=== PATIENT | male | born 1965 | race Caucasian/White ===

== ENCOUNTER 2021-06-12 12:57 | Outpatient (CLI) | payer BC, MEDICARE | END 2021-06-12 12:58 | disposition home or self-care (01) | LOC: CSHMRI 12:57 | PROVIDERS: ATTEND Specialist | DX: G35 Multiple sclerosis (principal); M47.812 Spondylosis without myelopathy or radiculopathy, cervical region; M48.02 Spinal stenosis, cervical region; M50.222 Other cervical disc displacement at C5-C6 level | CPT/HCPCS: 70553; 72156 ==